=== PATIENT | male | born 1945 | race Caucasian/White ===

== ENCOUNTER 2018-07-02 18:35 | Inpatient (IN) | payer OTHER ==
[~2018-07-02] VITALS: Ht 180.3 cm; Wt 69.8 kg
[2018-07-02 18:36] VITALS: BP 178/109
[2018-07-02 19:09] LABS: HEMATOCRIT 40.8 % (42.0-52.0); HEMOGLOBIN 13.1 gm/dL (14.0-18.0); MCH 27.3 pg (26.0-34.0); MCHC 32.2 g/dL (28.0-37.0); MCV 84.9 fL (80.0-100.0); PLATELET COUNT 192 thou/uL (150-400); RDW 19.8 % (10.5-14.5); WBC 12.8 thou/uL (4.0-11.0)
[2018-07-02 19:25] LABS: ANION GAP 7 mmol/L (7-16); BUN 16 mg/dL (7-18); CALCIUM 8.9 mg/dL (8.5-10.1); CHLORIDE 100 mmol/L (98-107); CO2 30 mmol/L (21-32); GLUCOSE 100 mg/dL (74-106); POTASSIUM 3.6 mmol/L (3.5-5.1); SODIUM 137 mmol/L (136-145)
[2018-07-02 19:27] LABS: TROPONIN-I <0.06 ng/mL (<0.06)
[2018-07-02 19:33] LABS: ABSOLUTE NEUTROPHILS 9.5 thou/uL (1.4-8.2); ANISOCYTOSIS 1+; LARGE PLATELETS OCCASIONAL; OVALOCYTES OCCASIONAL; POIKILOCYTOSIS SLIGHT
[2018-07-02 21:39] VITALS: BP 164/93
[2018-07-02 22:15] VITALS: BP 169/94
[2018-07-02] MEDS ORDERED: ASPIR 8181 MG PO (22:49)
[2018-07-02] MEDS ORDERED: HALDOL DECAN50 MG/M1 IM (22:49)
[2018-07-02] MEDS ORDERED: LIPITOR10 MG PO (22:50)
[2018-07-02] MEDS ORDERED: CARVEDILOL12.5 MG PO (22:51)
[2018-07-02] MEDS ORDERED: ARICEPT 5 MG TAB5 MG PO (22:52)
[2018-07-02] MEDS ORDERED: IRON325 PO (22:54)
[2018-07-02] MEDS ORDERED: GLUCOSAMINE HC500 MG PO (22:55)
[2018-07-02] MEDS ORDERED: KETOROLAC 0.5% E5 ML OPHTHALMIC (22:57)
[2018-07-02] MEDS ORDERED: ATIVAN0.5 MG PO (22:59)
[2018-07-02] MEDS ORDERED: MELATONIN3 MG PO (23:00)
[2018-07-02] MEDS ORDERED: CENTRUM SILVER1 EAC2 PO (23:00)
[2018-07-02] MEDS ORDERED: OCUVITE EYE +1 EACH PO (23:02)
[2018-07-02] MEDS ORDERED: RISPERDAL 3 MG T3 M1 PO ×2 (23:12)
[2018-07-02] MEDS ORDERED: STIOLTO RESPIMAT4 GM INH (23:13)
[2018-07-02] MEDS ORDERED: VITAMIN B-1100 M1 PO (23:14)
[2018-07-02] MEDS ORDERED: VENTOLIN HFA 1818 GM INH (23:15)
[2018-07-02] MEDS ORDERED: NAPROXEN375 MG PO (23:16)
[2018-07-02] MEDS ORDERED: NICOTINE LOZENGE2 MG BUCCAL (23:17)
[2018-07-02] MEDS ORDERED: TRAZODONE HCL100 MG PO (23:19)
[2018-07-02] MEDS ORDERED: VOLTAREN GEL 1100 G2 TOP (23:20)
--- NOTE | 2018-07-03 04:39 | NUR ---
Patient admitted to 3W unit at 2215 this shift. Patient oriented to person and the situation at arrival. Patient gave an incorrect date and said he was at [facility]. Patient placed on telemetry. Current hospital telemetry concerns explained to patient while he signed his sheet that states he was told and is aware of the ongoing issue. Patient arrived to unit on 1L NC but was placed on 2LNC when transitioned. Patient has been coughing up thick yellow, green sputum since arrival. Patient had several outburts of anger and yelling that was heard through the halls. The patient was extremely frustrated that he couldn't eat and said he hadn't ate all day. Patient situation explained to him several times that the doctors are ruling out aspiration. Laney Suarez NP notified of outburts and said to give PO ativan despite NPO order. The patient took the ativan but only continued to get more angry. Cortes (wire charger) called GLEN Suarez to discuss the situation. Zyprexa IM was ordered and security was called shortly after. At this point, the patient had also pulled out his IV. Security calmed the patient down and zyprexa has so far worked as the patient has been sleeping and calm. A new 22 G IV was started in the left forearm without issue. Will continue to monitor. Will follow orders and plan of care.
[2018-07-03 05:30] VITALS: BP 127/71
[2018-07-03 05:41] LABS: HEMATOCRIT 36.6 % (42.0-52.0); HEMOGLOBIN 11.8 gm/dL (14.0-18.0); MCH 27.4 pg (26.0-34.0); MCHC 32.3 g/dL (28.0-37.0); MCV 84.8 fL (80.0-100.0); RBC 4.32 mil/uL (4.50-6.00); RDW 19.8 % (10.5-14.5); WBC 8.7 thou/uL (4.0-11.0)
[2018-07-03 05:51] LABS: CALCIUM 8.4 mg/dL (8.5-10.1); POTASSIUM 3.6 mmol/L (3.5-5.1)
[2018-07-03 08:04] VITALS: BP 151/114
--- NOTE | 2018-07-03 09:34 | EKG ---
[address] [address] ELECTROCARDIOGRAM REPORT Name: RUBEN GLOVER Room #: 356-P ADM IN M.R.#: [id number] ������������������ Admission: 07/02/18 ������������������ Attend Phys: Rich Fernandes MD Discharge: ������������������ Date of : 45 Report #: [id number] ����������������������������������������������������������������� [id number] THIS REPORT FOR: //name// [facility] ED Test Date: 2018-07-02 Test Time: 19:01:39 Pat Name: RUBEN GLOVER Department: Room: 356 Gender: M Field Attendant: [id number] : 1945 Requested By: Ra Ventura Order Number: [id number] MD: Abdullahi Doe Measurements Intervals [place] Rate: 79 P: 81 DC: 143 QRS: 56 QRSD: 100 T: 66 QT: 407 QTc: 467 Interpretive Statements Sinus rhythm Probable left atrial enlargement Minimal ST depression, anterolateral leads No previous ECG available for comparison Electronically Signed On 07-03-2018 9:33:51 CDT by Abdullahi Doe [email or web address] ��������������������������������������������� <ELECTRONICALLY SIGNED> ���������������������������������������� By: Abdullahi Doe MD ��������������������������������������������� 07/03/18 0933 [id number] Abdullahi Doe MD /GALINA
--- NOTE | 2018-07-03 16:22 | NUR ---
PATIENT IS QUITE AGITATIVE THIS PM. HE WAS NOTED ATTEMPTING TO LEAVE THE BED ON NUMEROUS OCCATIONS. HE KEEPS YELLING AT THE TOP OF HIS VOICE HIS CONCERNS. NOT EASILY REDIRECTED. HE IS CONTINENT OF BOWEL AND BLADDER. DENIES PAIN WHEN ASKED. HE WAS ROBYN BY NURSING STATION TO CLOSE MONITORING. WILL CONT WITH PLAN OF CARE.
[2018-07-03 19:40] VITALS: BP 118/77
--- NOTE | 2018-07-04 02:30 | NUR ---
FOLLOWING POC WITH IVPB ANTIBIOTICS. PT IS STILL CONFUSED, YELLING, AND BEING INCIVIL. CALLED AND RENEWED DOSE OF OLANZAPINE TO HELP REDUCE ANXIETY. BED ALARM IS A MUST PT TRIES TO CRAWL OUT OF BED. PT REMOVED EXTERNAL CATH. HOURLY ROUNDING.
[2018-07-04 03:55] VITALS: BP 142/67
[2018-07-04 07:47] VITALS: BP 159/74; BP 159/764
--- NOTE | 2018-07-04 12:32 | HC ---
[facility] [place] [address] CONSULTATION Name: RUBEN GLOVER Room #: 356-P [facility] IN M.R.#: [id number] Admission: 07/02/18 ������������������ Attend Phys: Rich Fernandes MD Discharge: ������������������ Date of : 45 Report #: [id number] THIS REPORT FOR: //name// CC: Rich QUEZADA unknown DATE OF SERVICE: 07/03/2018 ATTENDING PHYSICIAN: Dr. Fernandes. REASON FOR CONSULTATION: Antibiotic management, question aspiration pneumonia. HISTORY OF PRESENT ILLNESS: The patient is a 72-year-old white man who tells me he is 74 years old and he resides at a local senior care for the last 3 years, where one of the nurses diagnosed him to have an aspiration. The patient is evaluated here and no evidence of aspiration detected and regular diet has been ordered for him. The patient actually has no complaints and he just tells me he is hungry. PAST MEDICAL HISTORY: There is history of hypertension. Schizophrenia. Dementia. Scoliosis. Dyslipidemia. DRUG ALLERGIES: CHLORPROMAZINE. MEDICATIONS: The patient is currently on treatment with methylprednisolone 40 mg IV t.i.d., melatonin at bedtime 3 mg, risperidone at bedtime 3 mg, Pacerone 100 mg at bedtime, atorvastatin 10 mg at bedtime, donepezil 5 mg at bedtime, enoxaparin 40 mg subcutaneous at bedtime, vancomycin 1 gram IV every 12 hours, glucosamine 1000 mg b.i.d., multivitamins 1 tablet daily, thiamine 100 mg t.i.d., risperidone 1.5 mg p.o. daily, aspirin 81 mg daily, ferrous sulfate 325 mg p.o. b.i.d., famotine 20 mg IV b.i.d., carvedilol 12.5 mg p.o. b.i.d., Zosyn 3.375 grams IV every 8 hours, p.r.n. diclofenac, p.r.n. lorazepam, p.r.n. albuterol inhalation treatments, p.r.n. ondansetron, has received furosemide once. SOCIAL HISTORY: See H and P, old records. FAMILY HISTORY: See H and P, old records. REVIEW OF SYSTEMS: Noncontributory. PHYSICAL EXAMINATION: GENERAL: Elderly nontoxic looking man, in no distress. VITAL SIGNS: Temperature 99.2, pulse 82, respirations 26, BP 178/109, O2 saturation 94% on 2 liters oxygen nasal cannula. HEENMT: Pupils small and reactive. Mouth: Missing [place], [place] [address] CONSULTATION Name: RUBEN GLOVER Room #: 356-P [facility] IN M.R.#: [id number] Admission: 07/02/18 ������������������ Attend Phys: Rich Fernandes MD Discharge: ������������������ Date of : 45 Report #: [id number] No thrush. NECK: Supple, no thyromegaly. LUNGS: Few rhonchi. HEART: S1, S2. No gallop or murmurs. CHEST: Revealed scaphoid chest. ABDOMEN: With an umbilical hernia that is not bothering the patient. No masses or megaly. GENITAL AND RECTAL: Deferred. EXTREMITIES: No clubbing, cyanosis. NEUROLOGIC: Grossly within normal limits. LABORATORY DATA: Sodium 140, potassium 3.6, BUN 16, creatinine 1, glucose 146. NT-proBNP 1707. WBC 12,800 that dropped to 8700 today, hemoglobin 13.1 on admission and dropped to 11.8 today, platelets 180,000 today, white blood cell count revealed 72% segmented neutrophils, 2% bands yesterday. MICROBIOLOGY DATA: All pending. IMAGING: Chest x-ray revealed patchy bibasilar pulmonary infiltrates. EKG, no acute changes. ASSESSMENT: 1. Question pneumonitis -- bibasilar. 2. Dementia. 3. Schizophrenia. 4. Hypertension. 5. Dyslipidemia. SUGGESTIONS: Recommend check ESR and CRP. Recheck PA and lateral chest x-ray tomorrow morning. Proceed to advance diet since no evidence of aspiration. Continue coverage with Zosyn and vancomycin. Decrease dose of Solu-Medrol to 40 b.i.d. and possibly change to oral antibiotics and medications and steroids tomorrow. Dr. Fernandes, thank you for requesting my suggestions. ��������������������������������������������� <ELECTRONICALLY SIGNED> ���������������������������������������� By: Richy Abraham MD ��������������������������������������������� 07/04/18 1232 [id number] Richy Abraham MD /nt
--- NOTE | 2018-07-04 14:10 | NUR ---
DISCHARGE PLANNING. PATIENT IS A RESIDENT OF THE [facility]. DISCHARGE PLAN IS FOR PATIENT TO RETURN TO THE [facility] AT ONCE PT IS MEDICALLY READY. CLINICAL INFORMATION FAXED TO THE [facility], VERIFIED RECEIVED. WILL FACILITATE DISCHARGE ONCE ORDERS HAVE BEEN COMPLETED. SPOKE WITH BRI, CHARGE NURSE FOR PATIENT AT THE [facility]. BRI STATES THEY ARE UNABLE TO PROVIDE IV ANTIBIOTIC INFUSION AND TRANSPORTATION CAN BE PROVIDED FOR PATIENT BETWEEN 1300 AND 1500 HOURS. UNIT CM/SW NOTIFIED. FOLLOWING TO ASSIST WITH DISCHARGE NEEDS.
--- NOTE | 2018-07-04 14:22 | NUR ---
INITIAL ASSESSMENT: Received consult due to pt being admitted from a nursing facility. MARILYN reviewed chart and spoke with nursing and attending physician. Pt was admitted from [facility] due to pneumonia/COPD exacerbation. Pt is currently on IV abx. MARILYN spoke with Ami at [facility], who states that pt is normally independent with ambulation. Pt needs cues for completing his ADLs. The facility is not able to provide IV abx at the facility. They would be able to provide transportation back to the facility. MARILYN spoke with pt's sister, Christiana, via phone. Introduced role of MARILYN. Christiana confirms plan is for pt to return to [facility] when stable. Christiana requests SW contact pt's SW through the [facility] ([phone]). MARILYN left voice message for [facility]. conference planner to fax updates to [facility]. Discharge is anticipated for tomorrow. MARILYN is following to assist as needed with discharge planning. [facility]--
[2018-07-04 14:48] VITALS: BP 167/58
[2018-07-04 15:49] VITALS: BP 168/86
--- NOTE | 2018-07-04 16:37 | NUR ---
PATIENT WAS QUITE AGITATIVE THIS MORNING. HE LEFT THE ROOM YELLING ON THE ALFARO WAY " I WANT TO SEE MONIKA MUHAMMAD". STATES " I KNOW MONIKA SABINA". NOT EASILY REDIRECTED AT THIS TIME HE CONT TO YELL DOWN THE ALFARO. WILL SCREAM BACK AT NURSE WHEN REDIRECTED. SOMETIMES IT SEEMS HE IS SLEEP WALKING/TALKING. PRN SEROQUEL ADMINISTERED BUT IT WAS QUITE INEFFECTIVE.HE WAS ASSISTED TO CHAIR AND THEN BROUGHT TO NURSING STATION WHERE HE SPENT MOST OF THE DAY TALKING O STAFF. HE SEEM MUCH CALMER AT THIS TIME. PATIENT DOES NOT SEEM TO BE IN PAIN. RESPIRATIONS ARE LABORED WITH EXERTION. MAY BE DISCHARGED TOMORROW. WILL CONT WITH PLAN OF CARE.
[2018-07-04 19:12] VITALS: BP 168/107
[2018-07-05 03:42] VITALS: BP 138/80
--- NOTE | 2018-07-05 04:15 | NUR ---
PATIENT IS PROGRESSING IN HIS CARE PLAN. PATIENT DID NO STATE, NOR DID NURSE PERCEIVE, ANY PAIN OR NAUSEA ON BEHALF OF PATIENT. MOSTLY DISORIENTED AND CONFUSED, PATIENT IS UNABLE TO STATE REQUESTS OR PARTICIPATE IN CARE PLAN EFFECTIVELY. BREATHING STABLE ON 2L NC EVIDENCED BY SPOT OXYGENATION CHECKS. PATIENT DID WEAR NASAL CANNULA FOR MOST OF SHIFT. UP TO THE BATHROOM WITH ASSISTANCE MULTIPLE TIMES, PATIENT IS MOSTLY CONTINENT AND ABLE TO STATE WHEN HE NEEDS THE RESTROOM. PATIENT REQUESTED MULTIPLE SNACKS OVERNIGHT AND WAS INSATIABLE IN APPETITE. POSSIBLE DISCHARGE TODAY. CONTINUE PLAN OF CARE.
[2018-07-05 07:23] VITALS: BP 178/104
[2018-07-05] MEDS ORDERED: AUGMENTIN 875-1 EACH PO (08:48)
[2018-07-05 10:27] VITALS: BP 178/104
--- NOTE | 2018-07-05 10:38 | NUR ---
Discharge Planning: Patient will dc today to [facility], pickup by [facility] 2L oxygen, time of pickup 130 to 2pm today. Unit notified, patient's sister Christiana notified. Discharge papers faxed to facility and construction secretary to include in cc. DP also notified facility of time.
--- NOTE | 2018-07-05 11:47 | NUR ---
DISCHARGE NOTE: MARILYN reviewed chart and spoke with nursing and attending physician. Pt is medically stable for discharge back to [facility] today. business planner coordinated and notified family. MARILYN spoke with MARILYN Caro at [place] to provide update and notify of discharge plan. MARILYN discussed pt's sister's request for pt needing dental services. Per [facility], he is looking for resources that would assist with getting pt oral surgery services. [facility] will follow up with pt at [facility]. No additional MARILYN needs identified at this time, but is available to assist should needs arise.
--- NOTE | 2018-07-05 11:54 | NUR ---
ASSUMED CARE OF PT AT 0700. PT IS ALERT AND ORIENATED TO PERSON. PT HAS BEEN AGITATED AND CONFUSED WITH PERIODS OF IRATE YELLING. PT WILL CALM DOWN WHEN STAFF ENTER ROOM AND SPEND TIME TALKING WITH HIM BUT UPON THEIR EXIT PT QUICKLY RETURNS TO TALKING TO SELF AND YELLING. HE HAS BEEN COMPLIANT WITH MEDICATION ADMINISTRATION BUT IT OTHERWISE UNABLE TO PARTICIPATE IN HIS CARE PLAN. HE IS LOW SR TO SB ON TELE. PT IS CURRENTLY UP TO CHAIR AND IS ABLE TO CALL TO VOICE NEEDS. PT REQUESTS MULTIPLE SNACKS AT A TIME AND IS IN CONSTANT ANTICIPATION OF HIS NEXT MEAL. DC IS SCHEDULED FOR THIS AFTERNOON. WILL CONTINUE TO MONITOR AND ASSESS.
--- NOTE | 2018-07-05 13:22 | NUR ---
PT IS BEING DC'D BACK TO THE [facility]. IV AND TELE HAVE BEEN DC'D. PT'S BELONGINGS HAVE BEEN GATHERED AND ARE BEING SENT WITH PT. CHART COPIED AND DISCHARGE ORDERS TO BE SENT WITH PT. CALLED REPORT TO [facility] AND SPOKE WITH BRI. PT IS BEING TRANSPORTED VIA [facility]. PT LEFT UNIT AT 1326.
== END 2018-07-05 13:33 | DRG 177 ==
LOC: ER 18:35 → 3W 20:24 → EROBS 20:24 → 3W 22:11
PROVIDERS: Emergency Medicine; Nurse Practitioner Family; ADMIT Hospitalist
DX: J69.0 Pneumonitis due to inhalation of food and vomit (principal); J96.01 Acute respiratory failure with hypoxia; J44.0 Chronic obstructive pulmonary disease with (acute) lower respiratory infection; J44.1 Chronic obstructive pulmonary disease with (acute) exacerbation; I11.0 Hypertensive heart disease with heart failure; F20.9 Schizophrenia, unspecified; F31.9 Bipolar disorder, unspecified; Y95 Nosocomial condition; I50.9 Heart failure, unspecified; F03.90 Unspecified dementia, unspecified severity, without behavioral disturbance, psychotic disturbance, mood disturbance, and anxiety; D64.9 Anemia, unspecified; E78.5 Hyperlipidemia, unspecified; Z79.82 Long term (current) use of aspirin; Z79.899 Other long term (current) drug therapy; Z88.8 Allergy status to other drugs, medicaments and biological substances
CPT/HCPCS: 10879